=== PATIENT | female | born 1970 ===

== ENCOUNTER 2016-12-17 15:02 | Outpatient (CLI) | payer OTHER | END 2016-12-17 15:03 | disposition home or self-care (01) | LOC: LABHHL 15:02 | PROVIDERS: ATTEND Surgery | DX: N60.01 Solitary cyst of right breast (principal); N63 Unspecified lump in breast | CPT/HCPCS: 88112; 88305 ==

== ENCOUNTER 2016-12-26 13:56 | Outpatient (CLI) | payer OTHER | END 2016-12-26 13:57 | disposition home or self-care (01) | LOC: LABHHL 13:56 | PROVIDERS: ATTEND Surgery | DX: R92.0 Mammographic microcalcification found on diagnostic imaging of breast (principal) | CPT/HCPCS: 88305; 88361 ==